=== PATIENT | male | born 1935 | race Caucasian/White ===

== ENCOUNTER 2016-05-28 19:28 | Inpatient (IN) | payer OTHER ==
[~2016-05-28] VITALS: Ht 175.3 cm; Wt 84.8 kg
[2016-05-28 20:24] LABS: CALCIUM, SERUM 8.3 mg/dL (8.5-10.1); CREATININE 2.2 mg/dL (0.6-1.3); POTASSIUM 4.4 mmol/L (3.5-5.1)
[2016-05-28 20:25] LABS: DIFF TOTAL % 100 %; EOSINOPHILS % (AUTO) 2.7 % (0.0-6.0); LYMPHOCYTES # (AUTO) 0.3 /CMM (0.8-4.8); LYMPHOCYTES % (AUTO) 34.1 % (20.0-44.0); MEAN CORPUSCULAR HEMOGLOBIN 26 PG (26.0-33.0); MEAN CORPUSCULAR HGB CONC 30 g/dl (31.0-36.0); MEAN CORPUSCULAR VOLUME 89 fL (80-96); MONOCYTES % (AUTO) 3.2 % (2.0-12.0); NEUTROPHILS # (AUTO) 0.7 /CMM (1.8-8.9)
[2016-05-28 20:32] LABS: TROPONIN I 0.072 ng/mL (0.00-0.056)
[2016-05-28 20:34] LABS: HEMATOCRIT 14 % (39-51); HEMOGLOBIN 4.3 g/dL (13.5-17.5); PLATELET COUNT (AUTO) 27 /CMM (150-450); RED BLOOD CELL COUNT(AUTO) 1.62 MIL/uL (4.5-6.0)
[2016-05-28 20:41] LABS: ALBUMIN 3.2 g/dL (3.4-5.0); BILIRUBIN,DIRECT 0.4 mg/dL (0.0-0.2); BILIRUBIN,TOTAL 1.5 mg/dL (0.2-1.0); INDIRECT BILIRUBIN 1.1 mg/dL (0.0-1.1); TOTAL PROTEIN, SERUM 7.2 g/dL (6.4-8.2)
[2016-05-28] MEDS ORDERED: IV SET PRIMARY 1 EA INFUS.SET MC ONE (20:44)
[2016-05-28] MEDS ORDERED: IV NS 0.9% 500 ML IV ONE (20:44)
[2016-05-28] MEDS ORDERED: IV NS 0.9% 500 ML BAG IV ONE (21:00)
[2016-05-28] MEDS ORDERED: IV NS 0.9% 1,000 ML IV PRN (21:01)
[2016-05-28 21:08] LABS: PLATELET ESTIMATE DECREASED
[2016-05-28] MEDS ORDERED: Z GUARD REMEDY 2 OZ OINT TP PRN (21:30)
[2016-05-28] MEDS ORDERED: MORPHINE SULFATE INJ 2 MG/ML DISP.SYRIN IV PRN (21:30)
[2016-05-28] MEDS ORDERED: MAG HYDROX/AL HYDROX/SIMETH 30 ML UDC PO PRN (21:30)
[2016-05-28] MEDS ORDERED: ZOLPIDEM TARTRATE 5 MG TABLET PO PRN (21:30)
[2016-05-28] MEDS ORDERED: ACETAMINOPHEN 325 MG TABLET PO PRN (21:30)
[2016-05-28] MEDS ORDERED: MAGNESIUM HYDROXIDE 30 ML UDC PO PRN (21:30)
[2016-05-28] MEDS ORDERED: ONDANSETRON HCL/PF 4 MG/2 ML VIAL IVP PRN (21:30)
[2016-05-28] MEDS ORDERED: HYDROCODONE/APAP 5/325MG 1 EACH TABLET PO PRN (21:30)
[2016-05-28 23:00] VITALS: BP 113/76
[2016-05-28] MEDS ORDERED: BLOOD IV SET 1 EA INFUS.SET MC ONE (23:45)
[2016-05-28] MEDS ORDERED: IV NS 0.9% 250 ML IV ONE (23:45)
[2016-05-29] VITALS (8 sets, daily range): BP systolic 100–137; BP diastolic 54–77
[2016-05-29] MEDS ORDERED: IV SET PRIMARY PUMP SET 1 EA INFUS.SET MC ONE (01:24)
[2016-05-29 07:17] LABS: BASOPHILS % (AUTO) 0.1 % (0.0-2.0); DIFF TOTAL % 100 %; EOSINOPHILS % (AUTO) 1.5 % (0.0-6.0); LYMPHOCYTES # (AUTO) 0.6 /CMM (0.8-4.8); MEAN CORPUSCULAR HEMOGLOBIN 31 PG (26.0-33.0); MEAN CORPUSCULAR HGB CONC 35 g/dl (31.0-36.0); MEAN CORPUSCULAR VOLUME 88 fL (80-96); MONOCYTES # (AUTO) 0.1 /CMM (0.1-1.30); MONOCYTES % (AUTO) 3.7 % (2.0-12.0); NEUTROPHILS # (AUTO) 0.8 /CMM (1.8-8.9); NEUTROPHILS % (AUTO) 52.7 % (43.0-81.0); RED BLOOD CELL COUNT(AUTO) 2.01 MIL/uL (4.5-6.0)
[2016-05-29 07:40] LABS: ALBUMIN 2.9 g/dL (3.4-5.0); BILIRUBIN,TOTAL 2.2 mg/dL (0.2-1.0); CALCIUM, SERUM 7.9 mg/dL (8.5-10.1); CREATININE 2.1 mg/dL (0.6-1.3); PHOSPHORUS 3.9 mg/dL (2.5-4.9); POTASSIUM 4.1 mmol/L (3.5-5.1); TOTAL PROTEIN, SERUM 6.8 g/dL (6.4-8.2)
[2016-05-29 07:44] LABS: HEMATOCRIT 18 % (39-51); HEMOGLOBIN 6.2 g/dL (13.5-17.5); PLATELET COUNT (AUTO) 21 /CMM (150-450); WHITE BLOOD COUNT (AUTO) 1.5 K/uL (4.3-11.0)
[2016-05-29 08:33] LABS: BAND % (MANUAL) 2 % (0.0-5.0); EOSINOPHILS % (MANUAL) 2 % (0-4); LYMPHOCYTES % (MANUAL) 34 % (16-48)
[2016-05-29 08:35] LABS: PLATELET ESTIMATE DECREASED
[2016-05-29 08:36] LABS: ANISOCYTOSIS 1+
[2016-05-29] MEDS: PANTOPRAZOLE 40 MG VIAL IV SCH ×2 (09:02→16:40)
[2016-05-29] MEDS ORDERED: FUROSEMIDE 40 MG/4 ML VIAL IV ONE (12:00)
[2016-05-29] MEDS ORDERED: POTASSIUM CHLORIDE 20 MEQ TAB.PRT.SR PO ONE (12:00)
[2016-05-29] MEDS ORDERED: ALLOPURINOL 100 MG TABLET PO SCH (12:30)
[2016-05-29] MEDS ORDERED: BLOOD IV SET 1 EA INFUS.SET MC ONE ×2 (14:01→14:29)
[2016-05-29] MEDS ORDERED: IV NS 0.9% 250 ML IV ONE (14:02)
== END 2016-05-29 16:56 | disposition home or self-care (01) | DRG 834 ==
LOC: ER 19:30 → TELE-TD 21:29
PROVIDERS: ADMIT Family Medicine; ATTEND Family Medicine
PROC: 30233N1 Transfusion of Nonautologous Red Blood Cells into Peripheral Vein, Percutaneous Approach (ICD-10-PCS; principal; 2016-05-28)
DX: C92.00 Acute myeloblastic leukemia, not having achieved remission (principal); G93.41 Metabolic encephalopathy; I21.4 Non-ST elevation (NSTEMI) myocardial infarction; I50.33 Acute on chronic diastolic (congestive) heart failure; I63.9 Cerebral infarction, unspecified; D61.818 Other pancytopenia; N17.9 Acute kidney failure, unspecified; I13.0 Hypertensive heart and chronic kidney disease with heart failure and stage 1 through stage 4 chronic kidney disease, or unspecified chronic kidney disease; I25.10 Atherosclerotic heart disease of native coronary artery without angina pectoris; J44.9 Chronic obstructive pulmonary disease, unspecified; N18.9 Chronic kidney disease, unspecified; N40.0 Benign prostatic hyperplasia without lower urinary tract symptoms; I35.0 Nonrheumatic aortic (valve) stenosis; D63.0 Anemia in neoplastic disease; K29.70 Gastritis, unspecified, without bleeding
CPT/HCPCS: 36415; 70450-TC; 71010-TC; 80048-TC; 80053-TC; 80076-TC; 83735-TC; 83880; 84100-TC; 84484-TC; 85025-TC; 86850-TC; 86921-TC; 87040-TC; 87081-TC; 93307-TC; A4606; C9113; J1940; J7030; J7040; J7050; P9016-BL; Z7610